=== PATIENT | female | born 1955 | race Caucasian/White ===

== ENCOUNTER 2021-02-13 10:17 | Outpatient (REF) | payer MEDICARE, OTHER, BC, SELFPAY ==
--- NOTE | ~2021-02-13 | MM_ITS ---
EXAMINATION: MM SCREENING DIGITAL BREAST TOMOSYNTHESIS, BILATERAL CLINICAL INFORMATION: Screening. Asymptomatic. 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 Family history breast cancer, paternal grandmother. The lifetime risk of breast cancer based on the Tyrer-Cuzick Model is 40%. COMPARISON: Mammography: 02/01/2020, 01/01/2019, 12/30/2017 TECHNIQUE: Digital breast tomosynthesis is performed in both the craniocaudal and mediolateral oblique views along with computer-aided detection (CAD). Synthesized 2D images are generated from the tomosynthesis. FINDINGS: There are scattered areas of fibroglandular density (ACR BI-RADS breast composition Category b). There are no significant masses, abnormal calcifications, or other abnormalities. Parenchymal pattern is similar to prior studies. There is no developing density. Again, there are bilateral round and coarse and ductal secretory calcifications. Some additional vascular calcifications are present central left breast. The axilla and skin contours are unremarkable. MM/MM tomosynthesis screening BI IMPRESSION: No mammographic evidence of malignancy. ASSESSMENT: BI-RADS 2: Benign RECOMMENDATION: Routine annual mammography screening. This patient's information was entered into a reminder system with a target due date for their next mammogram.
== END 2021-02-13 10:18 | disposition home or self-care (01) ==
LOC: HO.MAMMO 10:17
PROVIDERS: PCP Internal Medicine; Visit Provider Internal Medicine
DX: Z12.31 Encounter for screening mammogram for malignant neoplasm of breast (principal)
CPT/HCPCS: 77063; 77067

== ENCOUNTER 2022-02-19 09:47 | Outpatient (REF) | payer MEDICARE, OTHER, BC, SELFPAY ==
--- NOTE | ~2022-02-19 | MM_ITS ---
EXAMINATION: MM SCREENING DIGITAL BREAST TOMOSYNTHESIS, BILATERAL CLINICAL INFORMATION: Screening. Asymptomatic. The lifetime risk of breast cancer based on the Tyrer-Cuzick Model is 8%. COMPARISON: Mammography: 02/13/2021, 02/01/2020, 01/01/2019 TECHNIQUE: Digital breast tomosynthesis is performed in both the craniocaudal and mediolateral oblique views along with computer-aided detection (CAD). Synthesized 2D images are generated from the tomosynthesis. FINDINGS: There are scattered areas of fibroglandular density (ACR BI-RADS breast composition Category b). Parenchymal pattern is similar to prior studies. Again, there is a macrolobulated nodule with associated coarse calcification upper inner left breast consistent with degenerating fibroadenoma. There are scattered bilateral ductal secretory calcifications. No interval developing density or architectural abnormality or abnormal calcifications. The axilla and skin contours are unremarkable. MM/MM tomosynthesis screening BI IMPRESSION: No mammographic evidence of malignancy. ASSESSMENT: BI-RADS 2: Benign RECOMMENDATION: Routine annual mammography screening. This patient's information was entered into a reminder system with a target due date for their next mammogram.
== END 2022-02-19 09:48 | disposition home or self-care (01) ==
LOC: HO.MAMMO 09:47
PROVIDERS: PCP Internal Medicine; Visit Provider Internal Medicine
DX: Z12.31 Encounter for screening mammogram for malignant neoplasm of breast (principal)
CPT/HCPCS: 77063; 77067

== ENCOUNTER 2022-07-03 06:15 | Day surgery (SDC) | payer MEDICARE, OTHER, BC, SELFPAY ==
[2022-07-03 06:30] VITALS: BMI 29.2
[2022-07-03] MEDS: Lactated Ringers 1,000 ML 50 ML IVCONT (06:39)
[2022-07-03 06:51] VITALS: BP 148/69; PULSE 83; RESP 18; TEMP 36.6; O2SAT 98
[2022-07-03 07:02] LABS: Glucose, Whole Blood 220 mg/dL (60-115)
--- NOTE | 2022-07-03 07:28 | PC.NURSE ---
dr. coyle aware of blood sugar result of 220
--- NOTE | 2022-07-03 07:28 | MHC.SHP ---
Pre-Procedural Eval Section A Date of Service: 07/03/22 Section B Chief Complaint: screening Details of Present Illness: see H&P no changes Relevant Family History (Specify if Yes): No Relevant Social History: None Present Medications: see Short Stay Collaborative assessment Medical History: No relevant PMH History of Previous Operations: No relevant previous surgery Allergies: Allergies Allergy/AdvReac Type Severity Reaction Status Date / Time No Known Allergies Allergy Verified 07/03/22 05:55 Review of Systems Sugical H&P ROS: Negative: Constitution, Cardiovascular, Respiratory, Neurological, Psychiatric, Hem-Onc, Allergic/Immunologic, Gastrointestinal, Genitourinary, Musculoskeletal, Integumentary, Endocrine and Eyes/Ears/Nose/Throat Exam Surgical H&P Exam: Normal: HEENT, Normal: Heart, Normal: Lungs, Normal: Extremities, Normal: Abdomen, Normal: Skin and Normal: Neurological Plan Diagnosis/Plan: Unchanged I have reviewed the history and physical and performed a pertinent physical examination on my patient. No changes have occurred unless specified. Time Spent With Patient Time: Total time managing care of this patient today ____ minutes.
--- NOTE | 2022-07-03 07:59 | PM.OP ---
Brief Operative Note Date of Service: 07/03/22 Pre-op diagnosis: screening Post-op diagnosis: same Procedure: colonoscopy Surgeon: Lauro Grullon Was an Fire Extinguisher Inspector used for this Procedure?: No Estimated blood loss (mL): 2 Pathology: other Condition: stable Disposition: PACU
[2022-07-03 08:00] VITALS: BP 80/42; PULSE 67; RESP 16; TEMP 37.4; O2SAT 95
[2022-07-03 08:05] VITALS: BP 92/51
--- NOTE | 2022-07-03 08:05 | P.CONAN_ITS ---
[facility] Past Medical History Medical History Bladder cancer Diabetes mellitus Hyperlipemia Hypertension Functional capacity: independent ambulation Patient : No Family History Family history of problems with anesthesia: No Surgical History Surgical History History of bladder surgery Hx of colonoscopy History of Problems with Anesthesia: No Social History Social History Patient Tobacco Use Status: Never used Tobacco Are you DNR?: No Advance Directives: No Advance Directives Information Provided: Yes Nutrition Risks: No Nutritional Risk Meds Allergies Allergy/AdvReac Type Severity Reaction Status Date / Time No Known Allergies Allergy Verified 07/03/22 05:55 Active Medications: Current Medications Lactated Ringer's (Lr) 1,000 mls @ 50 mls/hr IVCONT .Q20H MALISSA Last Admin: 07/03/22 06:39 Dose: 50 mls/hr Home Medications Medication Instructions Recorded Confirmed Last Taken Type atorvastatin 10 mg tablet 1 tab PO DAILY 07/03/22 07/03/22 Unknown History ergocalciferol (vitamin D2) 1,250 1 cap PO QWEEK 07/03/22 07/03/22 Unknown History mcg (50,000 unit) capsule (Vitamin D2) glipizide 10 mg tablet 2 tab PO BID 07/03/22 07/03/22 Unknown History lisinopril 10 mg tablet 1 tab PO DAILY 07/03/22 07/03/22 Unknown History metformin 500 mg tablet,extended mg PO 07/03/22 Unknown History release 24 hr Exam Exam Date and Time: July 03, 2022 0805 Height,Weight and Vital Signs: Height 5 ft 4 in Weight 77.111 kg Last Vital Signs Temp 97.9 F 07/03/22 06:51 Pulse 83 07/03/22 06:51 Resp 18 07/03/22 06:51 BP 148/69 H 07/03/22 06:51 Pulse Ox 98 07/03/22 06:51 O2 Del Method 07/03/22 06:51 Pertinent Lab Results Pertinent Lab Results: Laboratory Tests 07/03/22 06:38 POC Glucose 220 H Airway Mallampati Class: III TM Dist: >3cm Neck ROM: Full Heart: RRR Lungs: CTA Assessment and Plan Final Anesthetic Review Family History of Problems with Anesthesia: No History of Problems with Anesthesia: No NPO: Yes ASA Class: II Final Preanesthetic Review: Meds/Allgs Chart Reviewed, Consent Obtained/Reviewed and Anes Risks/Benef Reviewed Patient Risk: Low Procedure Risk: Low Anesthetic Plan Anesthetic Plan: MAC: Disposition: Standard PACU
[2022-07-03 08:15] VITALS: BP 115/61; PULSE 81; RESP 16; O2SAT 95
[2022-07-03 08:30] VITALS: BP 130/67; PULSE 72; RESP 16; TEMP 36.8; O2SAT 97
--- NOTE | 2022-07-03 09:57 | HO.POSTANES ---
Post Anesthesia Evaluation Post Anesthesia Evaluation Vital Signs: Vital Signs Temp Pulse Resp BP Pulse Ox O2 Del Method 07/03/22 08:30 98.2 F 72 16 130/67 97 Room Air 07/03/22 08:05 92/51 L 07/03/22 08:15 81 16 115/61 95 Room Air 07/03/22 08:00 99.4 F 67 16 80/42 L 95 Room Air 07/03/22 06:51 97.9 F 83 18 148/69 H 98 Room Air Anesthesia: Monitored Mental Status: Awake Pain Control: Satisfactory Nausea/Vomiting: None Hydration: Adequate Anesthesia-Related Issues: No Anes. Related Issues
--- NOTE | 2022-07-03 10:06 | OP_ITS ---
SURGEON: Lauro Grullon MD INDICATIONS: Colon cancer screening. PREOPERATIVE DIAGNOSIS: POSTOPERATIVE DIAGNOSIS: PROCEDURE PERFORMED: Colonoscopy to the terminal ileum with biopsy. ESTIMATED BLOOD LOSS: COMPLICATIONS: ANESTHESIA: Monitored anesthesia care. ASSISTANTS: SPECIMENS: DESCRIPTION OF PROCEDURE: A history and physical was performed. The risks and benefits of the procedure were explained to the patient. The procedure was performed on 07/03/2022. The patient was placed in the left lateral decubitus position. A digital rectal exam was performed and it was found to be normal. The Olympus pediatric video colonoscope was introduced into the rectum and advanced to the cecum without difficulty. The cecum was identified by translumination, palpation, and identification of the ileocecal valve. Examination was performed and the scope was removed. She tolerated the procedure well and was returned to the recovery area in stable condition. FINDINGS: The terminal ileum was briefly examined and appeared normal. The visualized colonic mucosa was normal. The quality of the prep was good. In the rectum was a less than 5 mm sessile polyp. This was removed with a biopsy forceps. Retroflexed exam was otherwise normal. There was mild sigmoid diverticulosis. IMPRESSION: Colon polyp. RECOMMENDATIONS: Followup with biopsy results. MD ROD Montelongo/ARIES / [id number]
== END 2022-07-03 08:58 | disposition home or self-care (01) ==
PROVIDERS: PCP Internal Medicine; Visit Provider Internal Medicine Gastroenterology
PROC: 0DJD8ZZ Inspection of Lower Intestinal Tract, Via Natural or Artificial Opening Endoscopic (ICD-10-PCS; CPT 45378; principal; 2022-07-03 07:30)
DX: Z12.11 Encounter for screening for malignant neoplasm of colon (principal); K62.1 Rectal polyp; K57.30 Diverticulosis of large intestine without perforation or abscess without bleeding; R19.7 Diarrhea, unspecified; I10 Essential (primary) hypertension; E78.5 Hyperlipidemia, unspecified; Z85.51 Personal history of malignant neoplasm of bladder; E11.9 Type 2 diabetes mellitus without complications; Z79.84 Long term (current) use of oral hypoglycemic drugs; Z79.899 Other long term (current) drug therapy
CPT/HCPCS: 45380; 82947; 88305

== ENCOUNTER 2023-02-25 08:33 | Outpatient (REF) | payer MEDICARE, OTHER, BC, SELFPAY ==
--- NOTE | ~2023-02-25 | MM_ITS ---
EXAMINATION: MM SCREENING DIGITAL BREAST TOMOSYNTHESIS, BILATERAL CLINICAL INFORMATION: Screening. Asymptomatic. 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 Family history breast cancer, paternal grandmother. COMPARISON: Mammography: 02/19/2022, 02/13/2021, 02/01/2020, 01/01/2019 TECHNIQUE: Digital breast tomosynthesis is performed in both the craniocaudal and mediolateral oblique views along with computer-aided detection (CAD). Synthesized 2D images are generated from the tomosynthesis. FINDINGS: There are scattered areas of fibroglandular density (ACR BI-RADS breast composition Category b). There are dystrophic and secretory calcifications in both breasts. There are no suspicious grouped calcifications. There is no mass, or architectural distortion. Post benign biopsy clips noted both breasts. There is a calcified oil cysts in the far lateral anterior right breast. Early vascular calcifications noted left breast. The parenchymal pattern is stable from prior exams. There are no skin changes or axillary changes. MM/MM tomosynthesis screening BI IMPRESSION: No mammographic evidence of malignancy. Stable benign findings. ASSESSMENT: BI-RADS BI-RADS 2 - Benign Findings RECOMMENDATION: Routine annual mammography screening. 1 year F/U This examination should not preclude the clinical evaluation of a suspicious palpable abnormality. This patient's information was entered into a reminder system with a target due date for their next mammogram.
== END 2023-02-25 08:34 | disposition home or self-care (01) ==
LOC: HO.MAMMO 08:33
PROVIDERS: Visit Provider Internal Medicine
DX: Z12.31 Encounter for screening mammogram for malignant neoplasm of breast (principal)
CPT/HCPCS: 77063; 77067

== ENCOUNTER → 2023-02-25 08:45 | Outpatient (BNV) | payer MEDICARE, OTHER, BC, SELFPAY | PROVIDERS: Visit Provider Radiology Diagnostic Radiology | DX: Z12.31 Encounter for screening mammogram for malignant neoplasm of breast (principal) | CPT/HCPCS: 77063; 77067 ==

== ENCOUNTER 2024-03-02 07:50 | Outpatient (REF) | payer MEDICARE, OTHER, BC, SELFPAY ==
--- NOTE | ~2024-03-02 | MM_ITS ---
EXAMINATION: MM SCREENING DIGITAL BREAST TOMOSYNTHESIS, BILATERAL CLINICAL INFORMATION: Screening. Asymptomatic. Prior biopsy showing LCIS with fibroadenoma by patient history. History of breast cancer in paternal grandmother, age unknown. Prior TC score estimated at approximately 20% or higher. COMPARISON: Mammography: 02/25/2023, 02/19/2022, 02/13/2021, 02/01/2020, 01/01/2019, and dating back to 2017. TECHNIQUE: Digital breast tomosynthesis is performed in both the craniocaudal and mediolateral oblique views along with computer-aided detection (CAD). Synthesized 2D images are generated from the tomosynthesis. FINDINGS: There are scattered areas of fibroglandular density (ACR BI-RADS breast composition Category b). There are again noted to be benign dystrophic and secretory scattered calcifications in both breasts without change. An asymmetric density in the mid slightly outer left breast on the CC projection is summation artifact on tomographic imaging, and has a similar appearance on exams dating back to 2017. There is surgical scarring in the 9:00 axis left breast from prior lumpectomy. There are no suspicious masses, developing regions of architectural distortion, or developing suspicious grouped calcifications in either breast. The overall parenchymal pattern is stable from prior exams. There is no skin or axillary abnormality. MM/MM tomosynthesis screening BI IMPRESSION: -No mammographic evidence of malignancy. -Stable benign findings. -Given patient's high-risk status, correlating with screening MRI and/or ultrasound may be of benefit in addition to mammography. ASSESSMENT: BI-RADS BI-RADS 2 - Benign Findings RECOMMENDATION: Routine annual mammography screening. 1 year F/U This examination should not preclude the clinical evaluation of a suspicious palpable abnormality. This patient's information was entered into a reminder system with a target due date for their next mammogram. Electronically signed by: Sameer Whalen MD 03/02/2024 12:11 PM EDT
== END 2024-03-02 07:51 | disposition home or self-care (01) ==
LOC: HO.MAMMO 07:50
PROVIDERS: PCP Physician Assistant Medical; Visit Provider Internal Medicine
DX: Z12.31 Encounter for screening mammogram for malignant neoplasm of breast (principal)
CPT/HCPCS: 77063; 77067

== ENCOUNTER → 2024-03-02 08:00 | Outpatient (BNV) | payer MEDICARE, OTHER, BC, SELFPAY | PROVIDERS: PCP Physician Assistant Medical; Visit Provider Radiology Diagnostic Radiology | DX: Z12.31 Encounter for screening mammogram for malignant neoplasm of breast (principal) | CPT/HCPCS: 77063; 77067 ==

== ENCOUNTER 2025-03-08 08:15 | Outpatient (REF) | payer MEDICARE, OTHER, BC, SELFPAY ==
--- OUTSIDE RECORDS SUMMARY | 2025-03-08 08:32 | XMS_ITS | Patient Health Record ---
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 the day before the procedure for 1 day 08/31/2021 Active Lisinopril 10 MG Oral for 90 A ctive Atorvastatin Calcium 10 MG Oral for 90 Active glipiZIDE 10 MG TAKE ONE TABLET BY M OUTH TWICE A DAY BEFORE MEALS Oral for 90 Active metFORMIN HCl ER 500 MG TAKE ONE TABLET BY MOUTH TWICE A DAY WITH MEALS Oral for 90 Active Vitamin D (Ergocalciferol) 1.25 MG (89717 UT) Oral for 84 Active Calcium Active Vitamin B12 Active Immunizations Vaccine Route Administration Date Status Comme nts Influenza Unknown 02/01/2021 Administered Social History Tobacco Use: Social History Observation Description Date Details (start date - stop date) Never Smoker NA - NA Tobacco Use/Smoking Question Answer Notes Patient is a nonsmoker Alcohol Screen Question Answer Notes Did you have a drink containing alcohol in the p ast year? No Points 0 Interpretation Negative Problems Problem Type SNOMED Code ICD Code Onset Dates Problem Status W/U Status Risk Notes Problem 997159138 Colon cancer screening (Z12.11) Active confirmed Problem 58801695 Diarrhea, unspecified type (R19.7) Active confirmed Plan Of Treatment Pending Test Test Name Order Date COLONOSCOPY WITH BIOPSY 02/23/2011 Future Test Test Name Order Date COLONOSCOPY 08/31/2021 Insurance Providers Payer Name Payer Address Payer Phone Subscriber Number Group Number Insured Name Patient Relationship to Insured Coverage Start Date Coverage End Date MEDICARE OF [place] [address] [place] [address] [id number] DEDE GARVEY Self - patient is the insured [facility] [address] [place] [phone] [id number] DEDE GARVEY Self - patient is the insured [facility] [address] [place] [address] [id number] DEDE GARVEY Self - patient is the insured Medical (General) History Medical History History ICD Code hypertension diabetes mellitus bladder cancer Surgical History Surgery Date(Month/Year) bladder cancer x3- Dr. jamaica Pryor
--- OUTSIDE RECORDS SUMMARY | 2025-03-08 08:32 | XMS_ITS | Clinical Summary ---
Author Organization [facility] Address [address] [place] [address] Phone Care Team Providers Care Carpet Mechanic Name Role Phone Margarita Avila Primary Care Provider Manolo Pryor MD Unavailable Allergies No known active allergies Medications atorvastatin (LIPITOR) 10 MG tablet Take 10 mg by mouth daily. 07/10/19 23 Active lisinopril (PRINIVIL,ZESTRIL) 10 MG tablet Take 10 mg by mouth daily. 06/08/19 23 Active blood-glucose meter (FREESTYLE LITE METER [facility]) by Miscellaneous route. Active cyanocobalamin, vitamin B-12, (VITAMIN B-12 ORAL) Take by mouth. Active metFORMIN (GLUCOPHAGE-XR) 500 MG 24 hr tabletIndications:M icroalbuminuria due to type 2 diabetes mellitus TAKE 1 TABLET BY MOUTH IN THE MORNING AND TAKE 2 TABLETS IN THE EVENING OR DIRECTED 270 tablet 2 10/22/19 25 Active FREESTYLE 28 gauge lancetsIndications: Type 2 diabetes mellitus with peripheral neuropathy 1 each by Miscellaneous route daily. DX E11.65 100 each 2 01/12/20 25 Active FREESTYLE LITE Strp stripsIndications:T ype 2 diabetes mellitus with peripheral neuropathy 1 each by Miscellaneous route daily. Dx E11.65 100 strip 2 01/12/20 25 Active glipiZIDE (GLUCOTROL) 10 MG tabletIndications:T ype 2 diabetes mellitus with microalbuminuria Take 1 tablet (10 mg total) by mouth daily. 90 tablet 3 08/11/20 25 Active tirzepatide (MOUNJARO) 5 mg/0.5 mL PnIj subcutaneous penIndications:Type 2 diabetes mellitus with peripheral neuropathy Inject 0.5 mL (5 mg total) under the skin once a week. 2 mL 5 01/12/20 25 Active Active Problems Problem Noted Date Diagnosed Date Hyperlipidemia 04/08/2023 04/08/2023 Steatosis of liver 04/08/2023 04/08/2023 Overview (04/08/2023): RUQ US 02/12/22 [facility] Vitamin D deficiency 04/08/2023 04/08/2023 Rosacea 04/08/2023 04/08/2023 History of primary malignant neoplasm of urinary bladder 04/08/2023 04/08/2023 Overview (04/08/2023): Bladder Cancer x 3. Follows with Dr. Pryor.Follows with external urology. Diverticulosis of colon 04/08/2023 04/08/20 23 Overview (04/08/2023): Noted on colonoscopy. History of breast cancer 04/08/2023 023 Overview (04/08/2023): History of Lobular Carcinoma in [place] of [place] Breast. S/p lumpectomy 05/2000. Type 2 diabetes mellitus with peripheral neuropa thy 08/13/2022 Assessment & Plan (01/11/2025 9:01 AM EDT): Control is good based upon the patient's recall of her SMBG readings. No frequent or severe hypoglycemia. Will maintain her current regimen. Discussed considering increasing her mounjaro if her A1C is elevated. With her traveling for the of February she doesn't want to increase it then. Will let us know in March when she is back if she wants to try the increase. Will look into getting over the counter omeprazole to help with the heartburn she is experiencing. Continue to work on eating healthy and being active. To call or message with any issues managing her glucose levels. Up to date with [facility]. Labs ordered to be done later in the month. I have maintained a long-term, longitudinal relationship with this patient, overseeing care of chronic conditions, including diabetes. This care relationship has significantly influenced my decision-making and treatment plans during today's encounter. Assessment & Plan (10/27/2024 4:37 PM EDT): Control has been reasonable. No frequent or severe hypoglycemia. Will check labs today. Discussed potential increase in mounjaro/decrease in glipizide to try to improve/maintain control with more favorable weight impact/less risk of hypoglycemia. She would prefer to stick with current for now given tolerating it well. Continue to work on eating healthy & keeping active. To call or send in BG with problems with glycemic control. Up to date with [facility]. Assessment & Plan (07/13/2024 9:01 AM EST): Control is reasonable/good based upon the patient's SMBG readings. No frequent or severe hypoglycemia. She had an episode of hypoglycemia after walking and shoveling for a morning. She corrected with an orange and then was fine. Will maintain her current regimen. Discussed considering increasing her mounjaro if her A1C is elevated. Continue to work on eating healthy and being active. To call or message with any issues managing her glucose levels. Up to date with [facility], scheduled to see later this week. Labs ordered Assessment & Plan (04/27/2024 2:54 PM EST): Control improved. No frequent or severe hypoglycemia. Advised to vary time of day of SMBG & to test if feels anxious as could be caused by a low BG. Continue to work on eating healthy & keeping active. To call or send in BG with problems with glycemic control. Up to date with [facility]. Foot & nail care good. Assessment & Plan (04/27/2024 2:52 PM EST): >>ASSESSMENT AND PLAN FOR TYPE 2 DIABETES MELLITUS WRITTEN ON 12/19/2022 9:30 AM BY MARANDA RAHMAN PA-C Control is suboptimal based upon the patient's recall of her SMBG readings and her last A1C of 9.0%. No frequent or severe hypoglycemia. She has not been consistent with checking her glucose levels. She is going to work on testing her glucose levels more to help determine how to improve her control. Reviewed the potential risks and benefits of SGLT-2s and GLP-1s. She doesn't want to add anything yet, but would consider if when she starts checking her glucose levels and they are consistently over 200. Would prefer to use a GLP-1 rather than SGLT-2, as will likely be more effective in improving her glucose control. Continue to work on eating healthy and being active. To call with any issues managing her glucose levels. Up to date with [facility] Assessment & Plan (01/10/2024 12:54 PM EDT): Control is good based upon the patient's recall of her SMBG readings and her last A1C of 7.8%. No frequent or severe hypoglycemia. She is adjusting her glipizide dosing based upon if she is going to go walking in the morning or not. Discussed that doing this is fine to help prevent possible lows. She is doing well with tolerating the 2.5 mg dose of mounjaro, she has not increased to 5 mg. Will maintain her current regimen. Continue to work on eating healthy and being active. To call or message with any issues managing her glucose levels. Up to date with [employer]. Labs ordered for later in January Assessment & Plan (10/08/2023 9:15 AM EDT): Control improved based on SMBG. Some lows w/ addition of mounjaro, improved w/ decrease in glipizide. Will repeat labs late October or later. Continue to work on eating healthy & keeping active. To call or send in BG with problems with glycemic control. Up to date with [facility]. Assessment & Plan (08/05/2023 8:49 AM EST): She brought in her mounjaro pen to be shown how to use it. She was initially planning to use the rybelsus but after talking with her pharmacist, she changed her mind and decided to go with the mounjaro. Reviewed potential side effects of the mounjaro. Reviewed storage of the mounjaro. Reviewed site rotation of the mounjaro and how it effects absorption. She was shown how to inject using the pen. She demonstrated good understanding via teach back. She gave the first injection without any issues. She will call if she has any issues or side effects. Discussed calling after she gives her 3rd injection on 08/18 to see how she is tolerating it and then sending in the 5 mg dose. Continue to work on eating healthy and being active. To call with any issues managing her glucose levels. Assessment & Plan (07/23/2023 12:37 PM EST): Control is unknown as the patient is not checking her glucose levels often. No frequent or severe hypoglycemia. She did not start the mnounjaro because she wasn't sure if she was going to come in for a teaching or would be starting herself. Discussed I can do a teaching with her once she gets the medications. She is questioning the difference between the GLP-1s, discussed the differences between the injections and oral. Will send prescriptions for mounjaro and rybelsus to see what is better covered by her insurance. Once she knows what is better covered she will call with what is covered and will request a teaching is needed. Continue to work on eating healthier and being active. To call or message with any issues managing her glucose levels. Up to date with [facility]. Labs ordered today Assessment & Plan (04/08/2023 9:38 AM EST): HbA1c continues to indicate inadequate control. No frequent or severe hypoglycemia. Discussed options to improve control with risks & benefits. Will send over rx for mounjaro & see if that is covered. To call to make appt christine/ [facility] to learn how to give injection. Continue to work on eating healthy & keeping active. To call or send in BG with problems with glycemic control. Up to date with [facility]. Foot & nail care good. Type 2 diabetes mellitus with microalbuminuria Assessment & Plan (10/27/2024 4:34 PM EDT): Will include urine with labs. BP controlled, on thanh inhibitor, Assessment & Plan (04/27/2024 2:53 PM EST): Will call for recent labs done via PCP to see if included. On lisinopril. Assessment & Plan (10/08/2023 9:14 AM EDT): Will repeat w/ next labs. On lisinopril. BP > target today, seeing PCP tomorrow. Assessment & Plan (04/08/2023 9:38 AM EST): Not resulted, will check with lab. BP under good control. On thanh-inhibitor. Assessment & Plan (08/13/2022 12:38 PM EDT): Control is unknown as the patient has not been checking her glucose levels via SMBG readings recently. We also do not have her recent A1C done by her PCP. No frequent or severe hypoglycemia. She has been having a hard time since the passing of her older sister from pancreatic cancer. She is now starting to try and focus again on improving her diabetes control. She had the list of medications (GLP-1's) previously given to her by Dr Ash, but she hasn't checked into the coverage of these yet. Her other sister is taking jardiance and questions using this. Discussed risks and benefits of this. She would like to work on improving her diet and exercise for the next 3 months before making medication changes. Discussed looking into the diabetes nutrition classes at [facility] for help with meal planning/suggestion as she doesn't do virtual classes. Continue to work on eating healthy and being active. To start checking her glucose levels consistently again. To call with any issues managing glucose levels. Ophtho up to date. To do labs with PCP in November Essential hypertension Assessment & Plan (10/27/2024 4:33 PM EDT): BP well controlled today. Assessment & Plan (10/08/2023 9:15 AM EDT): BP a little high today, has follow up with PCP tomorrow. Assessment & Plan (04/08/2023 9:36 AM EST): Well controlled on current rx. roasterman current use of oral hypoglycemic drug Assessment & Plan (07/13/2024 8:53 AM EST): Will maintain her metformin dosing and glipizide dosing. Discussed the difference between metformin and glipizide and how they work, as she though metformin could cause hypoglycemia Long-term current use of inj ectable noninsulin antidiabetic medication Assessment & Plan (07/13/2024 8:50 AM EST): Will maintain her mounjaro dosing at 5 mg a week. Discussed considering increasing the dose to 7.5 mg a week if her A1C is higher Encounters Date Type Department Care Team Description 01/11/2025 8:20 AM EDT Office Visit [facility] Endocrinology [address] [place] [phone] Maranda Rahman PA-C Type 2 diabetes mellitus with peripheral neuropathy (Primary Dx); Type 2 diabetes mellitus with microalbuminuria from Last 3 Months Immunizations Immunization Administration Dates Next Due COVID-19 (Pre-03/25) Moderna Vaccine, Bivalent 6mo+ 02/09/2022 COVID-19 (Pre-03/25) Moderna Vaccine, mRNA, PF 03/19/2023,10/02/2021,03/30/2021,09/13,08/16/2020 COVID-19 Moderna Spikevax Vaccine 12+ 04/06/2024 ,03/19/2023 INFLUENZA, SPLIT VIRUS, TRIV ALENT W/ PRESERVATIVE IM 04/06/2024,03/13/2022,03/27/2021,03/07,03/10/2019,02/28/2018,04/01/2017 ,02/27/2016 Influenza, Unspecified Formulation 04/01/2023 Pneumococcal conjugate PCV13 12/22/2018 Pneumococcal polysaccharide PPSV23 01/19/2021 Tdap 12/22/2018 Zoster recombinant 10/09/2023,08/02/2023 Family History Medical History Relation Comments Hyperlipidemia Father Hypertension Father Stroke Father Cancer Mother Hyperlipidemia Mother Hypertension Mother Pancreatic cancer Sister Relation Status Comments Father Mother Sister Social History Tobacco Use Types Packs/Day Years Used Date Smoking Tobacco: Never Smokeless Tobacco: Never Tobacco Cessation:Counseling Given: Not Answered Alcohol Use Standard Drinks/Week Comments Not Currently 0 (1 standard drink = 0.6 oz pure alcohol) social drinker; during [place] Education Answer Date Recorded Are you interested in more education? Not on slade e 09/28/2022 Are you concerned about learning? Not on file 09/28/2022 No 09/28/2022 No 09/28/2022 Digital Access Answer Date Recorded No 10/27/2022 No 10/27/2022 Reliable internet access at home? Not on file 10/27/2022 Device with a working camera? Not on file Comments Unknown Sex and Gender Information Value Date Recorded Sex Assigned at Not on file Legal Sex Female 9:55 PM EDT Gender Identity Not on file Sexual Orientation Not on file Last Filed Vital Signs Vital Sign Reading Time Taken Comments Blood Pressure 150/78 01/11/2025 8:09 AM EDT Pulse 75 01/11/2025 8:09 AM EDT Temperature 36.2 C (97.1 F) 10/27/2024 9:37 AM EDT Respiratory Rate 18 01/11/2025 8:09 AM EDT Oxygen Saturation 98% 01/11/2025 8:09 AM EDT Inhaled Oxygen Concentration - - Weight 73.6 kg (162 lb 3.2 oz) 01/11/2025 8:09 A M EDT Height 162.6 cm (5' 4.02 ) 01/11/2025 8:09 AM ED T Body Mass Index 27.83 01/11/2025 8:09 AM EDT Plan of Treatment Upcoming Encounters Date Type Department Care Team (Late st Contact Info) Description 05/04/2025 8:20 AM EST Office Visit [facility] Endocrinology [place] [address] [place] [phone] Katelyn Ash MD [address] [place] [phone] [email or web address] 08/09/2025 8:40 AM EDT Office Visit [facility] Endocrinology [place] [address] [place] [phone] Maranda Rahman PA-C [address] [place] [phone] [email or web address] Health Maintenance Due Date Last Done Comments DEPRESSION SCREENING 1967 HEPATITIS C SCREENING 1973 MAMMOGRAM 1995 COLOGUARD 2000 COLONOSCOPY 2000 COLORECTAL CANCER SCREENING 2000 FIT TEST 2000 FOBT 2000 SIGMOIDOSCOPY 2000 VIRTUAL COLONOSCOPY 2000 RSV VACCINE (1 - Risk 60-74 years 1-dose series) 2015 DIABETIC EYE EXAM 08/13/2022 INFLUENZA VACCINE (#1) 2025 , 04/01/2023, 03/13/2022, Additional history exists COVID-19 VACCINE ( season) 2025 04/06/2024, 03/19/2023, 03/19/2023, Additional history exists HEMOGLOBIN A1C 04/29/2025 10/27/2024, 07/05, 04/22/2024, Additional history exists BLOOD PRESSURE 07/14/2025 01/11/2025 CREATININE LEVEL 10/27/2025 10/27/2024, , 04/22/2024, Additional history exists POTASSIUM LEVEL 10/27/2025 10/27/2024, 07/05, 04/22/2024, Additional history exists Adult Td,Tdap Booster 12/22/2028 12/22/2018 PNEUMOCOCCAL VACCINES (50+ years) Completed 01/19/2021, 12/22/2018 OSTEOPOROSIS SCREENING INITIAL (ONE-TIME) Completed 07/25/2021 ZOSTER VACCINES Completed 10/09/2023, 08/02/2023 SMOKING STATUS SCREENING (Once After 26 Yrs) Completed 01/11/2025 HEPATITIS A VACCINES Aged Out No long er eligible based on patient's age to complete this topic HIB VACCINES Aged Out No longer eligi ble based on patient's age to complete this topic MENINGOCOCCAL VACCINES (ACWY) Aged Out No longer eligible based on patient's age to complete this topic MENINGOCOCCAL VACCINES (B) Aged Out N o longer eligible based on patient's age to complete this topic Medical Devices Not on file Procedures Procedure Name Priority Date/Time Associated Diagnosis Comments HEMOGLOBIN A1C Routine 10/27/2024 10:23 AM EDT Type 2 diabetes mellitus with peripheral neuropathy BASIC METABOLIC PANEL Routine 10/27/2024 10:23 AM EDT Type 2 diabetes mellitus with peripheral neuropathy OUTSIDE BONE DENSITY SCREENING Routine 07/25/2021 from Last 3 Months or Most Recently Relevant to Health Maintenance Results * (ABNORMAL) Hemoglobin A1c (10/27/2024 10:23 AM EDT) HEMOGLOBIN A1C 7.3(H) 4.3 - 5.8 % [facility] Blood 10/27/2024 10:2 3 AM EDT 10/27/2024 10:28 AM EDT Katelyn Ash MD LAB BLOOD ORDERABLES F inal Result [facility] [address] [place], [place] [id number] * (ABNORMAL) Basic metabolic panel (10/27/2024 10:23 AM EDT) SODIUM 139 133 - 146 mmol/L [facility] CHLORIDE 103 96 - 108 mmol/L [facility] POTASSIUM 4.4 3.3 - 5.1 mmol/L [facility] CO2 24 21 - 35 mmol/L [facility] BUN 16 6 - 19 mg/dL [facility] CREATININE 0.60 0.5 - 1.5 mg/dL [facility] GLUCOSE 191(H) 70 - 99 mg/dL [facility] CALCIUM 9.9 8.4 - 10.3 mg/dL [facility] EGFR 97 >59 mL/min/1.7 3m2 [facility] Comment:Estimated glomerular filtration rate calculated using the CKD-EPI refit equation. ANION GAP 16 10 - 20 mmol/L [facility] Blood 10/27/2024 10:2 3 AM EDT 10/27/2024 10:28 AM EDT Katelyn Ash MD LAB BLOOD ORDERABLES F inal Result [facility] [address] [place] [address] * OUTSIDE BONE DENSITY SCREENING (07/25/2021) [facility] Signature BONE DENSITY SCREENING - EXTERNAL normal Historical Provider HEALTH MAINTENANCE Final Result from Last 3 Months or Most Recently Relevant to Health Maintenance Insurance MEDICARE PART A & B [facility] SUPPLE[facility] Member Subscriber Plan / Payer (Ef fective 2017-Present) Name:Camila Roche Relation to Subscriber:Spouse Name:KASEY ROCHE Date of :1900 (Home) Address: [address] [place] [place], [place] Payer ID:[id number] (NAIC) Group ID:[id number] Type:PPO Address: [address] [place] [address] MEDICARE PART A & B [facility] MEDIC[facility] SUPPLEMENT Member Subscriber Plan / Payer (Ef fective 2017-Present) Name:Camila Roche Relation to Subscriber:Spouse Name:KSAEY ROCHE Date of :1900 (Home) Address: [place], [place] Payer ID:[id number] (NAIC) Group ID:[id number] Type:PPO Address: [address] [place] [address] MEDICARE PART A & B [facility] MEDIC[facility] SUPPLEMENT Member Subscriber Plan / Payer (Ef fective 2017-Present) Name:Camila Roche Relation to Subscriber:Spouse Name:KASEY ROCHE Date of :1900 (Home) Address: [address] [place] [address] Payer ID:[id number] (NAIC) Group ID:[id number] Type:[facility] Address: [facility] [address] [place] [address] [place] MEDICARE PART A & B [facility] MEDICARE SUPPLEMENT [facility] Member Subscriber Plan / Payer (Ef fective 2017-Present) Name:Camila Roche Relation to Subscriber:Spouse Name:MAREKASEY R Date of :1900 (Home) Address: [address] [place] [id number] Payer ID:[id number] (NAIC) Group ID:[id number] Type:PPO Address: [facility] [id number] [place] [address] MEDICARE PART A & B [facility] [place] MEDICARE SUPPLEMENT [facility] Member Subscriber Plan / Payer (Ef fective 2017-Present) Name:Camila Roche Relation to Subscriber:Spouse Name:KASEY ROCHE Date of :1900 (Home) Address: [address] [place] [address] Payer ID:[id number] (NAIC) Group ID:[id number] Type:PPO Address: [facility] [id number] [place] [address] MEDICARE PART A & B [facility] MEDICARE SUPPLEMENT [facility] Member Subscriber Plan / Payer (Ef fective 2017-Present) Name:Camila Roche Relation to Subscriber:Spouse Name:KASEY ROCHE Date of :1900 (Home) Address: [address] [place], [place] Payer ID:[id number] (NAIC) Group ID:[id number] Type:PPO Address: [address] [place] [address] [place], [place] Care Teams Carpet Mechanic Relationship Specialty Start Date End Date Margarita Avila PA [address] [place] [address] PCP - General Physician Bell Attendant 08/01/22 Manolo Pryor MD [address] [address] [email or web address] 01/11/25 Additional Source Comments The information contained in this document represents components of the legal health record. It is not the complete legal health record.[facility]
--- OUTSIDE RECORDS SUMMARY | 2025-03-08 08:32 | XMS_ITS ---
Author Name [facility] Organization Unknown Care Team Organization Name Specialty Phone Email Start Date End Da te [facility] Katty [facility] 11/09/2022 [facility] Renee, PROVIDER Primary Care 04/10/202201/01
--- OUTSIDE RECORDS SUMMARY | 2025-03-08 08:32 | XMS_ITS | Encounter Summary ---
Author Organization [facility] Address [address] [place] [address] Care Team Providers Care Mold Maker Name Role Phone Physician, Pcp Unknown Primary Care Provider Scarlett vailable Encounter Details Date Type Department Care Team (Late st Contact Info) Description 01/08/2025 Lab Requisition [facility] - Main Lab [address] [place] [address] Manolo Pryor MD [address] [facility] [address] [place] [address] Personal history of malignant neoplasm of bladder; Malignant neoplasm of dome of bladder (CMS/HCC V24, CMS/HCC V28) Social History Tobacco Use Types Packs/Day Years Used Date Smoking Tobacco: Never Smokeless Tobacco: Never Alcohol Use Standard Drinks/Week Comments No 0 (1 standard drink = 0.6 oz pur e alcohol) Comments Unknown Sex and Gender Information Value Date Recorded Sex Assigned at Not on file Legal Sex Female 1:22 PM EST Gender Identity Not on file Sexual Orientation Not on file documented as of this encounter Plan of Treatment Not on file documented as of this encounter Procedures Procedure Name Priority Date/Time Associated Diagnosis Comments NON-GYNECOLOGIC CYTOLOGY Routine 01/01/2025 12:00 AM EDT Personal history of malignant neoplasm of bladder Malignant neoplasm of dome of bladder (CMS/HCC V24, CMS/[facility] V28) documented in this encounter Results * Non-gynecologic cytology (01/01/2025 12:00 AM EDT) Final Diagnosis A. Urine, Voided, ([id number]): Negative for high grade urothelial carcinoma. Results of UroVysion fluorescence in situ hybridization (FISH) testing: CEP3: Normal CEP7: Normal CEP17: Normal LSI 9p21: Normal Interpretation: Normal profile Controls stained appropriately. Note: The results are intended as a screening device and should be interpreted in association with other clinical and pathological findings. 01/15/2025 12:[address] [facility] Specimen A Adequacy Satisfactory for evaluation 01/15/2025 12:[address] [facility] Clinical Information History of bladder neoplasm (malignant) Z85.51 Urine Cytology/FISH (now) 01/15/2025 12:[address] [facility] Gross Description A. Urine, Voided, ([id number]): Received one ThinPrep slide for cytology and one ThinPrep slide for UroVysion FISH 01/15/2025 12:[address] [facility] Disclaimer Unless otherwise specified, all tissue is 10% NB formalin fixed and paraffin embedded. Technical pathology services provided by [facility] at [address], [place] [address] (CLIA #[id number]/Shari Kinsey MD, Irrigation System Operator) 01/15/2025 12:[address] [facility] Urine Urine specimen from urethra / Unknown 01/01/2025 01/08/2025 1:36 PM EDT us Manolo Pryor MD LAB CYTOLOGY ORDERABLES Final R esult [facility] [address] [place] [address], documented in this encounter Visit Diagnoses Diagnosis Personal history of malignant neoplasm of bladder Malignant neoplasm of dome of bladder (CMS/HCC V24, CMS/HCC V28) Malignant neoplasm of dome of urinary bladder documented in this encounter Care Teams Mold Maker Relationship Specialty Start Date End Date Physician, Pcp Unknown PCP - General 01/08/25 documented as of this encounter
--- OUTSIDE RECORDS SUMMARY | 2025-03-08 08:32 | XMS_ITS | Clinical Summary ---
Author Organization [address] Address [address] [place] [phone] Phone Care Team Providers Care Customer Service Receptionist Name Role Phone Physician, Pcp Unknown Primary Care Provider Scarlett vailable Encounters Date Type Department Care Team Description 01/08/2025 Lab Requisition [facility] - Main Lab [address] [place] [address] Manolo Pryor MD Personal history of malignant neoplasm of bladder; Malignant neoplasm of dome of bladder (CMS/[facility] V24, [facility] V28) from Last 3 Months Surgical History Surgery Date Site/Laterality Comments BREAST LUMPECTOMY 05/2000 PROCEDURE: HISTORICAL BREAST LUMPECTOMY BLADDER SURGERY 2013 PROCEDURE: HISTORICAL BLADDER SURGERY; COMMENT: tumor removed x 3,01/02/2016,07/15/2014,01/12/2014, MOUTH SURGERY 11/08/2014 PROCEDURE: ORAL SURGERY PROCEDURE Medical History Medical History Date Comments Hypertension 12/12/2017 DX:Hypertension Hyperlipidemia 12/12/2017 DX:Hyperlipidemi a Lobular carcinoma in situ (L CIS) of left breast 1999 DX:Lobular carcinoma in situ (LCIS) of left breast; COMMENT: Dx 05/2000, s/p lumpectomy Rosacea 12/12/2017 DX:Rosacea DM (diabetes mellitus), type 2 with renal complications (CMS/HCC V24, CMS/[facility] V28) 12/12/2017 DX:DM (diabetes mellitus), t ype 2 with renal complications ([facility]) Microalbuminuria 12/17/2017 DX:Microalbumin uria Uterine prolapse DX:Uterine prol apse History of bladder cancer 12/12/2017 DX:His tory of bladder cancer; COMMENT: Sees Dr Pryor, as of 09/20/17, 08/2018 clear cystoscopy Overweight (BMI 25.0-29.9) 12/22/2018 DX:Ov erweight (BMI 25.0-29.9) Family History Medical History Relation Name Comments Stroke Father Other: thrombosis Mother 67 mets, unsu re of primary site, cigarette use Breast cancer Paternal Grandmother 76 Diabetes Paternal Grandmother 76 breast ca Heart attack Sister 1 No Known Problems Sister 2 Colon cancer Neg Hx Ovarian cancer Neg Hx Pancreatic cancer Neg Hx Prostate cancer Neg Hx Uterine cancer Neg Hx Relation Name Status Comments Father Mother 67 Paternal Grandmother 76 Sister 1 Alive Sister 2 Social History Tobacco Use Types Packs/Day Years Used Date Smoking Tobacco: Never Smokeless Tobacco: Never Alcohol Use Standard Drinks/Week Comments No 0 (1 standard drink = 0.6 oz pur e alcohol) Comments Unknown Sex and Gender Information Value Date Recorded Sex Assigned at Not on file Legal Sex Female 1:22 PM EST Gender Identity Not on file Sexual Orientation Not on file Obstetrics History Last Filed Vital Signs Vital Sign Reading Time Taken Comments Blood Pressure 135/63 02/02/2022 8:34 AM EDT Pulse 68 02/02/2022 8:34 AM EDT Temperature - - Respiratory Rate - - Oxygen Saturation - - Inhaled Oxygen Concentration - - Weight 74.8 kg (165 lb) 02/02/2022 8:34 AM EDT Height 162.6 cm (5' 4 ) 02/02/2022 8:34 AM EDT Body Mass Index 28.32 02/02/2022 8:34 AM EDT Plan of Treatment Health Maintenance Due Date Last Done Comments Breast Cancer Screening 1955 Colorectal Cancer Screening: Colonoscopy 1955 Diabetes: Annual GFR (Glomerular Filtration Rate) 1955 Diabetes: Annual Foot Exam 1965 Diabetes: Annual Retina Eye Exam 1965 Hepatitis A Vaccines (1 of 2 - Risk 2-dose series) 1974 Zoster Vaccines (1 of 2) 1974 Cervical Cancer Screening: HPV 1976 Hepatitis B Vaccines (1 of 3 - Risk 3-dose series) 2015 RSV Immunization Adult Patients (1 - Risk 60-74 years 1-dose series) 2015 Cholesterol Screening (Lipid Panel) 05/01/2022 Falls Risk Assessment 05/01/2022 Hepatitis C Screening 05/01/2022 Medicare Annual Wellness Visit 05/01/2022 Social Influencers of Health Screening 05/01/2022 Hypertension/CHF/CAD Annual BMP Blood Test 05/12/2022 Diabetes: Annual Urine Albumin-Creatinine Ratio (uACR) 05/17/2022 Diabetes: Blood Sugar Control Test (HGBA1C) 05/17/2022 Depression Screening 06/03/2024 COVID-19 Vaccine ( season) 2025 10/02/2021, 03/30/2021, 09/13/2020, Additional history exists Influenza Vaccine (#1) 2025 , 03/27/2021, 03/07/2020, Additional history exists Osteoporosis Screening (Bone Density Screening) 07/25/2026 07/25/2021 DTaP,Tdap,and Td Vaccines (2 - Td or Tdap) 12/22/2028 12/22/2018 Pneumococcal Vaccine: 50+ Years Completed 01/19/2021, 12/22/2018 HIB Vaccines Aged Out No longer eligi ble based on patient's age to complete this topic HPV Vaccines Aged Out No longer eligi ble based on patient's age to complete this topic IPV Vaccines Aged Out No longer eligi ble based on patient's age to complete this topic MMR Vaccines Aged Out No longer eligi ble based on patient's age to complete this topic Meningococcal ACWY Vaccine Aged Out N o longer eligible based on patient's age to complete this topic Meningococcal B Vaccine Aged Out No l onger eligible based on patient's age to complete this topic RSV Immunization Patients Under 20 months Aged Out No longer eligible based on patient's age to complete this topic Varicella Vaccines Aged Out No longer eligible based on patient's age to complete this topic Procedures Procedure Name Priority Date/Time Associated Diagnosis Comments NON-GYNECOLOGIC CYTOLOGY Routine 01/01/2025 12:00 AM EDT Personal history of malignant neoplasm of bladder Malignant neoplasm of dome of bladder ([facility] V24, [facility] V28) DXA BONE DENSITY STUDY 1+ SITS AXIAL SKEL Routine 07/25/2021 9:47 AM EST Encounter for screening for osteoporosis from Last 3 Months or Most Recently Relevant to Health Maintenance Results * Non-gynecologic cytology (01/01/2025 12:00 AM EDT) Final Diagnosis A. Urine, Voided, (): Negative for high grade urothelial carcinoma. Results of UroVysion fluorescence in situ hybridization (FISH) testing: CEP3: Normal CEP7: Normal CEP17: Normal LSI 9p21: Normal Interpretation: Normal profile Controls stained appropriately. Note: The results are intended as a screening device and should be interpreted in association with other clinical and pathological findings. 01/15/2025 12:15 PM EDT [facility] Specimen A Adequacy Satisfactory for evaluation 01/15/2025 12:15 PM EDT [facility] Clinical Information History of bladder neoplasm (malignant) Z85.51 Urine Cytology/FISH (now) 01/15/2025 12:15 PM EDT [facility] Gross Description A. Urine, Voided, (): Received one ThinPrep slide for cytology and one ThinPrep slide for UroVysion FISH 01/15/2025 12:15 PM EDT [facility] Disclaimer Unless otherwise specified, all tissue is 10% NB formalin fixed and paraffin embedded. Technical pathology services provided by [facility] at [address] [place] [address] [address], [place] [address] (CLIA #[id number]/Shari Kinsey MD, Knot Saw Operator) 01/15/2025 12:15 PM EDT [facility] Urine Urine specimen from urethra / Unknown 01/01/2025 01/08/2025 1:36 PM EDT us Manolo Pryor MD LAB CYTOLOGY ORDERABLES Final R esult [facility] [address] [place] [address], * DXA BONE DENSITY STUDY 1+ SITS AXIAL SKEL (07/25/2021 9:47 AM EST) Anatomical Region Laterality Modality Bone Densitometr y 07/25/2021 8:52 AM EST Narrative 07/25/2021 11:34 AM EST BONE DENSITY (DEXA) Lumbar Spine T-score is 2.1. (SD relative to 20-29 y/o adult) Z-score is 3.9. (SD relative to age matched peers) This is considered normal by WHO criteria. Left Hip T-score is -0.3. Z-score is 1.3. This is considered normal by WHO criteria. IMPRESSION: Patient is considered to have normal bone density by WHO criteria. The [facility] Department of Internal Medicine recommends using National Osteoporosis Foundation (NOF) guidelines in treatment decisions related to osteoporosis. NOF guidelines suggest considering treatment for postmenopausal women and men aged 50 or older presenting with the following: History of hip or vertebral fracture. T-score = -2.5 (DXA) at the femoral neck, total hip, or spine, after appropriate evaluation to exclude secondary causes. Low bone mass (T-score between -1.0 and -2.5 at the femoral neck or spine) AND a 10-year probability of a hip fracture = 3% OR a 10-year probability of a major osteoporosis-related fracture = 20% based on the [place]-adapted WHO algorithm Please note that all treatment decisions require clinical judgment and consideration of individual patient factors, including patient preferences, co-morbidities, previous drug use, risk factors not captured in the FRAX model (e.g., frailty, falls, vitamin D deficiency, increased bone turnover, interval significant decline in bone density) and possible under- or over-estimation of fracture risk by FRAX. Optional alternative screening schedule based on jw Acosta., [facility] June 21, 2011 for patients with osteopenia (based on hip BMD T-score) is as follows: * advanced osteopenia (T scores -2.00 to -2.49), BMD testing every year * moderate osteopenia (T scores -1.50 to -1.99), BMD testing every 5 years mild osteopenia or normal BMD (T scores -1.50 and higher), BMD testing every 15 years Procedure Note Deana Darling MD - 05/22/2022 BONE DENSITY (DEXA) Lumbar Spine T-score is 2.1. (SD relative to 20-29 y/o adult) Z-score is 3.9. (SD relative to age matched peers) This is considered normal by WHO criteria. Left Hip T-score is -0.3. Z-score is 1.3. This is considered normal by WHO criteria. IMPRESSION: Patient is considered to have normal bone density by WHO criteria. The [facility] Department of Internal Medicine recommendsusing National Osteoporosis Foundation (NOF) guidelines in treatment decisions related toosteoporosis. NOF guidelines suggest considering treatment for postmenopausal women and menaged 50 or older presenting with the following: History of hip or vertebral fracture. T-score = -2.5 (DXA) at the femoral neck, total hip, or spine, afterappropriate evaluation to exclude secondary causes. Low bone mass (T-score between -1.0 and -2.5 at the femoral neck or spine)AND a 10-year probability of a hip fracture = 3% OR a 10-year probability of a majorosteoporosis-related fracture = 20% based on the [place]-adapted WHO algorithm Please note that all treatment decisions require clinical judgment andconsideration of individual patient factors, including patient preferences, co- morbidities,previous drug use, risk factors not captured in the FRAX model (e.g., frailty, falls, vitaminD deficiency, increased bone turnover, interval significant decline in bone density) andpossible under- or over-estimation of fracture risk by FRAX. Optional alternative screening schedule based on jw Acosta., NEJJanuary 2011 for patients with osteopenia (based on hip BMD T-score) is as follows: * advanced osteopenia (T scores -2.00 to -2.49), BMD testing every year * moderate osteopenia (T scores -1.50 to -1.99), BMD testing every 5years mild osteopenia or normal BMD (T scores -1.50 and higher), BMD testingevery 15 years Margarita WEBB IMKaelyn DXA PROCEDURES Final Resu lt from Last 3 Months or Most Recently Relevant to Health Maintenance Insurance MEDICARE [facility] Member Subscriber Plan / Payer (Ef fective 2024-Present) Name:CAMILA ROCHE Relation to Subscriber:Spouse Name:KASEY ROCHE Date of :1955 Address: [address] [place] [address] Payer ID:[id number] Type:Not on file Address: [facility] [id number] [facility] Member Subscriber Plan / Payer (Ef fective 2024-Present) Name:CAMILA ROCHE Relation to Subscriber:Spouse Name:KASEY ROCHE Date of :1959 Address: [address] [place] [address] Payer ID:[id number] Group ID:[id number] Type:Not on file Address: [address] [place] [address] Care Teams Customer Service Receptionist Relationship Specialty Start Date End Date Physician, Pcp Unknown PCP - General 01/08/25
== END 2025-03-08 08:16 | disposition home or self-care (01) ==
LOC: HO.MAMMO 08:15
PROVIDERS: PCP Physician Assistant Medical; Visit Provider Physician Assistant Medical
DX: Z12.31 Encounter for screening mammogram for malignant neoplasm of breast (principal)
CPT/HCPCS: 77063; 77067

== ENCOUNTER → 2025-03-08 08:30 | Outpatient (BNV) | payer MEDICARE, OTHER, BC, SELFPAY | PROVIDERS: PCP Physician Assistant Medical; Visit Provider Internal Medicine | DX: Z12.31 Encounter for screening mammogram for malignant neoplasm of breast (principal) | CPT/HCPCS: 77063; 77067 ==